=== PATIENT | female | born 2000 | race Caucasian/White ===

== ENCOUNTER 2023-11-23 18:05 | Emergency (ER) | payer MEDICAID ==
[2023-11-23] MEDS ORDERED: Ondansetron 4 MG Tab.DIS PO ONE (18:06)
[2023-11-23 18:33] LABS: BASOPHILS PERCENT AUTO 0.4 % (0.2-1.5); EOSINOPHILS PERCENT AUTO 0.1 % (0.6-8.1); HEMATOCRIT 39.6 % (34.2-48.2); HEMOGLOBIN 13.4 g/dL (11.4-15.5); LYMPHOCYTES ABSOLUTE AUTO 0.3 x10-3/uL (1.0-4.4); LYMPHOCYTES PERCENT AUTO 4.4 % (18.4-52.1); MEAN CORPUSCULAR HEMOGLOBIN 28.8 pg (23.9-33.9); MEAN CORPUSCULAR HGB CONC 33.8 g/dL (31.9-34.8); MEAN CORPUSCULAR VOLUME 85.2 fL (76.7-100.5); MEAN PLATELET VOLUME 6.6 fL (7.1-12.4); MONOCYTES ABSOLUTE AUTO 0.6 x10-3/uL (0.3-1.0); MONOCYTES PERCENT AUTO 7.5 % (4.4-15.7); NEUTROPHILS ABSOLUTE AUTO 6.9 x10-3/uL (1.5-6.3); NEUTROPHILS PERCENT AUTO 87.6 % (30.8-76.2); PLATELET COUNT,PLT 307 x10(3)uL (151-488); RED BLOOD CELL COUNT 4.64 x10(6)uL (3.60-5.20); RED CELL DISTRIBUTION WIDTH 13.2 % (12.3-16.5); WHITE BLOOD CELL COUNT,WBC 7.9 x10-3/uL (3.0-10.3)
[2023-11-23 18:35] LABS: BASE EXCESS VENOUS,POC -4 mmol/L (-2 - 3+); PCO2 VENOUS,POC 23 mmHg (41-51); PH VENOUS,POC 7.48 pH Units (7.32-7.43)
[2023-11-23] MEDS: Sodium Chloride 0.9% 1,000 ML IV ONE ×2 (18:40→19:48)
[2023-11-23] MEDS: Ondansetron 4 MG/2 ML SDV IVPUSH ONE (18:41)
[2023-11-23 18:44] LABS: BLOOD UREA NITROGEN,BUN 6 mg/dL (7-18); BUN/CREATININE RATIO 8.6 (9-20); CALCIUM 8.5 mg/dL (8.6-10.2); CARBON DIOXIDE,CO2 20 mmol/L (21-32); CHLORIDE,CL 100 mmol/L (100-110); CREATININE 0.7 mg/dL (0.55-1.02); ESTIMATED GFR 127 mL/min (>60); GLUCOSE RANDOM 111 mg/dL (80-116); POTASSIUM,K 3.1 mmol/L (3.5-5.3); SODIUM,NA 137 mmol/L (135-145)
[2023-11-23 18:56] LABS: A/G RATIO 1.4; ALANINE AMINOTRANSFERASE,ALT 11 U/L (12-36); ALBUMIN 4.1 g/dL (3.5-5.2); ALKALINE PHOSPHATASE 52 IU/L (56-112); ASPARTATE AMNIOTRANSFERASE,AST 19 IU/L (5-25); BILIRUBIN TOTAL 0.8 mg/dL (0.1-1.3); MAGNESIUM 1.5 mg/dL (1.8-2.5)
[2023-11-23] MEDS: LORazepam 2 MG/ML SDV IVPUSH ONE ×2 (19:32→23:24)
[2023-11-23] MEDS: Ketorolac 30 MG/ML SDV IVPUSH ONE (19:35)
[2023-11-23] MEDS: Magnesium Sulfate/Water 2 GM in Premix Bag 1 BAG IV ONE (19:38)
[2023-11-23] MEDS: Calcium Gluconate 10% 1 GM/10 ML SDV IVPUSH ONE (20:42)
[2023-11-23] MEDS: Sodium Chloride 0.9% 50 ML ONE (20:43)
[2023-11-23 22:24] LABS: BILIRUBIN,URINE NEGATIVE (NEGATIVE); GLUCOSE,URINE NORMAL (NORMAL); KETONES,URINE 50 mg/dL (NEGATIVE); LEUKOCYTE ESTERASE,URINE NEGATIVE (NEGATIVE); NITRITE,URINE NEGATIVE (NEGATIVE); OCCULT BLOOD,URINE NEGATIVE (NEGATIVE); PROTEIN,URINE NEGATIVE (NEGATIVE); UROBILINOGEN,URINE NORMAL (NEGATIVE)
[2023-11-23 22:27] LABS: APPEARANCE,URINE CLEAR (CLEAR); BACTERIA,URINE FEW (NS); COLOR,URINE YELLOW (YELLOW); RBC,URINE 0-5 (0-5); SQUAMOUS EPITHELIAL CELLS,UR RARE (NS,R,O); WBC,URINE 0-5 (0-5)
== END 2023-11-23 23:30 | disposition home or self-care (01) ==
LOC: FB.ED 18:05
DX: U07.1 COVID-19 (principal); E86.0 Dehydration; E83.42 Hypomagnesemia; E83.51 Hypocalcemia; R29.0 Tetany; R06.4 Hyperventilation; F41.0 Panic disorder [episodic paroxysmal anxiety]; Z88.0 Allergy status to penicillin; Z88.1 Allergy status to other antibiotic agents
CPT/HCPCS: 36415; 80053; 81001; 83605; 83735; 85025; 86140; 93005; 93010; 96361; 96365; 96375; 99284; 99284-25; J0612; J1885; J2060; J2405; J3475; J3490; J7030; Q0162; U0002

== ENCOUNTER 2025-02-06 01:27 | Emergency (ER) | payer MEDICAID ==
[2025-02-06 02:09] LABS: BLOOD UREA NITROGEN,BUN 9 mg/dL (7-18); CARBON DIOXIDE,CO2 23 mmol/L (21-32); CHLORIDE,CL 102 mmol/L (100-110); CREATININE 0.6 mg/dL (0.55-1.02); EST CRCL DRUG DOSING (CG) 116.32 mL/min; ESTIMATED GFR 130 mL/min (>60); GLUCOSE RANDOM 89 mg/dL (80-116); POTASSIUM,K 3.7 mmol/L (3.5-5.3); SODIUM,NA 137 mmol/L (135-145)
[2025-02-06 02:10] LABS: BASOPHILS ABSOLUTE AUTO 0.0 x10-3/uL (0.0-0.1); BASOPHILS PERCENT AUTO 0.3 % (0.2-1.5); EOSINOPHILS ABSOLUTE AUTO 0.1 x10-3/uL (0.0-0.8); EOSINOPHILS PERCENT AUTO 0.9 % (0.6-8.1); LYMPHOCYTES ABSOLUTE AUTO 0.8 x10-3/uL (1.0-4.4); LYMPHOCYTES PERCENT AUTO 9.4 % (18.4-52.1); MEAN PLATELET VOLUME 6.8 fL (7.1-12.4); MONOCYTES ABSOLUTE AUTO 0.6 x10-3/uL (0.3-1.0); MONOCYTES PERCENT AUTO 6.8 % (4.4-15.7); NEUTROPHILS ABSOLUTE AUTO 7.0 x10-3/uL (1.5-6.3); NEUTROPHILS PERCENT AUTO 82.6 % (30.8-76.2); PLATELET COUNT,PLT 281 x10(3)uL (151-488); RED BLOOD CELL COUNT 4.75 x10(6)uL (3.60-5.20); RED CELL DISTRIBUTION WIDTH 13.2 % (12.3-16.5); WHITE BLOOD CELL COUNT,WBC 8.4 x10-3/uL (3.0-10.3)
[2025-02-06 02:14] LABS: A/G RATIO 1.3; ALANINE AMINOTRANSFERASE,ALT 33 U/L (12-36); ASPARTATE AMNIOTRANSFERASE,AST 23 IU/L (5-25); BILIRUBIN TOTAL 0.7 mg/dL (0.1-1.3); PROTEIN TOTAL,TP 7.3 g/dL (6.0-8.0)
[2025-02-06 02:54] LABS: INFLUENZA A NAA NEGATIVE (NEGATIVE); INFLUENZA B NAA NEGATIVE (NEGATIVE); RESPIRATORY SYNCYTIAL VIR NAA NEGATIVE (NEGATIVE)
[2025-02-06 02:56] LABS: CORONAVIRUS COVID-19 NAA NEGATIVE (NEGATIVE)
[2025-02-06] MEDS: hydrOXYzine HCl 50 MG/ML SDV IM ONE (03:12)
== END 2025-02-06 03:36 | disposition home or self-care (01) ==
LOC: SUPCPDRO 01:27 → FB.ED 01:27
DX: J06.9 Acute upper respiratory infection, unspecified (principal); Z88.0 Allergy status to penicillin; Z88.1 Allergy status to other antibiotic agents; Z88.8 Allergy status to other drugs, medicaments and biological substances
CPT/HCPCS: 36415; 71046; 80053; 83735; 84484; 85025; 85379; 87637; 96372; 99283; 99285; A9270-GY; J3410